=== PATIENT | female | born 1975 | race Caucasian/White ===

== ENCOUNTER 2018-09-10 18:17 | Emergency (ER) | payer MEDICAID ==
[~2018-09-10] VITALS: Ht 170.2 cm; Wt 71.7 kg
--- NOTE | 2018-09-10 18:40 | NUR ---
Patient discharged to home in stable conditon. Written and verbal after care instructions given to patient. Patient verbalizes understanding of instructions.
== END 2018-09-10 18:40 | disposition home or self-care (01) ==
LOC: ER 18:19
DX: A74.9 Chlamydial infection, unspecified (principal); B95.8 Unspecified staphylococcus as the cause of diseases classified elsewhere; Z88.1 Allergy status to other antibiotic agents
CPT/HCPCS: A4663

== ENCOUNTER 2023-02-03 05:39 | Emergency (ER) | payer MEDICAID, OTHER ==
[~2023-02-03] VITALS: Ht 170.2 cm; Wt 68.0 kg
--- NOTE | 2023-02-03 07:21 | NUR ---
at bedside for evaluation.
[2023-02-03 07:56] LABS: HEMATOCRIT 21.1 % (31.2-41.9); MEAN CORPUSCULAR HEMOGLOBIN 18.8 uug (24.7-32.8); MEAN CORPUSCULAR VOLUME 63.6 fL (75.5-95.3); PLATELET COUNT (AUTO) 199 K/uL (179-408)
[2023-02-03 08:26] LABS: CREATININE 0.9 mg/dL (0.6-1.3); POTASSIUM 3.9 mmol/L (3.5-5.1)
[2023-02-03 08:27] LABS: BILIRUBIN,TOTAL 0.4 mg/dL (0.2-1.0)
[2023-02-03 08:28] LABS: TOTAL PROTEIN, SERUM 7.2 g/dL (6.4-8.2)
--- NOTE | 2023-02-03 09:37 | NUR ---
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
[2023-02-03 09:42] LABS: IRON, SERUM 17 ug/dL (50-175)
[2023-02-03] MEDS ORDERED: MEDR10TA3 PO (11:47)
[2023-02-03] MEDS ORDERED: HYDR12.55 PO (11:47)
--- NOTE | 2023-02-03 13:10 | NUR ---
Per [place] from lab, the second unit would be ready a minimum of three hours from now. MD aware. MD to discuss with patient.
--- NOTE | 2023-02-03 13:20 | NUR ---
Patient does not wish to wait for the second unit to be ready. , Sam, aware.
--- NOTE | 2023-02-03 13:30 | NUR ---
One unit of packed RBCs infused. Patient tolerated infusion without adverse effects.
--- NOTE | 2023-02-03 13:51 | NUR ---
Patient discharged to home in stable condition. Patient ambulate with brisk, steady gait. No complaints at this time. Written and verbal after care instructions given. Patient verbalizes understanding of instructions. Stressed follow up with primary care physician and OBGYN. Patient advised to return to ER for worsening s/s.
[2023-02-03 13:56] LABS: EOSINOPHILS % (MANUAL) 6 % (0-8); LYMPHOCYTES % (MANUAL) 11 % (20-40); MONOCYTES % (MANUAL) 9 % (2-10); NEUTROPHILS % (MANUAL) 74 % (42-75)
[2023-02-03 13:59] VITALS: BP 111/63
== END 2023-02-03 13:51 | disposition home or self-care (01) ==
LOC: ER 05:44
DX: D64.9 Anemia, unspecified (principal); N93.9 Abnormal uterine and vaginal bleeding, unspecified; R53.1 Weakness; I10 Essential (primary) hypertension; Z20.822 Contact with and (suspected) exposure to COVID-19; Z88.1 Allergy status to other antibiotic agents
CPT/HCPCS: 80053; 83880; 83550; 85007; 85025; 85379; 85610; 86850; 86900; 86901; 86920 ×2; 87426; 84484; 84702; 36415; 93005; 71045; 76856; 93970; 99291; 80307; P9016; J7040; 70030-TC

== ENCOUNTER 2023-02-25 23:26 | Emergency (ER) | payer OTHER ==
[~2023-02-25] VITALS: Ht 167.6 cm; Wt 72.6 kg
[~2023-02-25 23:26] MED LIST: HYDR12.55 PO; MEDR10TA3 PO
[2023-02-25 23:58] LABS: HEMATOCRIT 25.2 % (31.2-41.9); MEAN CORPUSCULAR HEMOGLOBIN 19.7 uug (24.7-32.8); MEAN CORPUSCULAR VOLUME 66.6 fL (75.5-95.3); PLATELET COUNT (AUTO) 196 K/uL (179-408)
--- NOTE | 2023-02-26 00:02 | NUR ---
BIB friends from home with c/o low blood count, patient is alert and oriented x4, no c/o pain at this time. No s/s of any distress noted, pale in color, slight BLE edema noted abd soft non trnder to palpation. #20g established in left forearm, blood collected and sent to lab. Patient has been informed of plan of care assisted into gown and bedside EKG in progress for MD review.
[2023-02-26 00:16] LABS: BILIRUBIN,DIRECT 0.3 mg/dL (0.0-0.2); BILIRUBIN,TOTAL 0.6 mg/dL (0.2-1.0); TOTAL PROTEIN, SERUM 8.1 g/dL (6.4-8.2)
--- NOTE | 2023-02-26 00:32 | NUR ---
Lab has returned, was at [facility] talking with patient, okay for discharge home with friends.ACI given states understanding.
[2023-02-26 00:34] VITALS: BP 135/86
== END 2023-02-26 00:35 | disposition home or self-care (01) ==
LOC: ER 23:26
DX: D50.9 Iron deficiency anemia, unspecified (principal); N93.8 Other specified abnormal uterine and vaginal bleeding; R10.2 Pelvic and perineal pain; Z88.1 Allergy status to other antibiotic agents; Z79.899 Other long term (current) drug therapy
CPT/HCPCS: 36415; 85025; 85730; 86850; 86900; 86901; 93005; A4663

== ENCOUNTER 2023-03-05 18:25 | Emergency (ER) | payer OTHER ==
[~2023-03-05] VITALS: Ht 167.6 cm; Wt 72.6 kg
--- NOTE | 2023-03-05 19:06 | NUR ---
Pt seen by . Safety measures in place. Will continue to monitor.
[2023-03-05 19:24] LABS: HEMATOCRIT 23.4 % (31.2-41.9); MEAN CORPUSCULAR HEMOGLOBIN 20.2 uug (24.7-32.8); MEAN CORPUSCULAR VOLUME 66.3 fL (75.5-95.3); PLATELET COUNT (AUTO) 193 K/uL (179-408)
[2023-03-05 19:30] LABS: POTASSIUM 4.1 mmol/L (3.5-5.1)
--- NOTE | 2023-03-05 19:55 | NUR ---
Patient discharged to home in stable condition. Written and verbal after care instructions given. Patient verbalizes understanding of instructions. Provided Patient copy of labs and EKG. Stressed follow up or return to ER for worsening s/s.
[2023-03-05 19:56] VITALS: BP 149/88
[2023-03-06 07:30] LABS: EOSINOPHILS % (MANUAL) 7 % (0-8); LYMPHOCYTES % (MANUAL) 19 % (20-40); MONOCYTES % (MANUAL) 6 % (2-10); NEUTROPHILS % (MANUAL) 68 % (42-75)
== END 2023-03-05 19:56 | disposition home or self-care (01) ==
LOC: ER 18:25
DX: N93.8 Other specified abnormal uterine and vaginal bleeding (principal); R42 Dizziness and giddiness; D50.9 Iron deficiency anemia, unspecified; Z88.1 Allergy status to other antibiotic agents; Z79.899 Other long term (current) drug therapy
CPT/HCPCS: 36415; 70030-TC; 85025; 85610; 93005; A4663

== ENCOUNTER 2023-06-28 05:05 | Emergency (ER) | payer OTHER ==
[~2023-06-28] VITALS: Ht 167.6 cm; Wt 72.6 kg
[2023-06-28 05:11] VITALS: O2SAT 100
[2023-06-28] MEDS ORDERED: ONDANSETRON ODT 4 MG TAB.RAPDIS ONE (05:40)
[2023-06-28] MEDS ORDERED: HYDROCODONE/APAP 5-325MG TABLET ONE (05:40)
[2023-06-28] MEDS ORDERED: HYDROCODONE/APAP 10-325 MG TABLET PO ONE (05:45)
[2023-06-28] MEDS ORDERED: ONDANSETRON ODT 4 MG TAB.RAPDIS SL ONE (05:45)
[2023-06-28] MEDS ORDERED: ONDA4TAB5 PO (06:08)
[2023-06-28] MEDS ORDERED: HYDR-3980 PO (06:08)
[2023-06-28] MEDS ORDERED: CYCL10TA9 PO (06:08)
== END 2023-06-28 06:23 | disposition home or self-care (01) ==
LOC: ER 05:08
DX: M54.50 Low back pain, unspecified (principal); Z88.1 Allergy status to other antibiotic agents; Z79.899 Other long term (current) drug therapy
CPT/HCPCS: 72100; A4663; Q0162

== ENCOUNTER 2024-06-06 07:25 | Inpatient (IN) | payer MEDICAID, OTHER ==
[~2024-06-06] VITALS: Ht 167.6 cm; Wt 74.8 kg
[~2024-06-06 07:25] MED LIST changes: +CYCL10TA9 PO; +HYDR-3980 PO; +ONDA4TAB5 PO
[2024-06-06 08:30] LABS: CALCIUM 8.5 mg/dL (8.5-10.1); CARBON DIOXIDE 21 mmol/L (21-32); CHLORIDE 104 mmol/L (98-107); GLUCOSE 88 mg/dL (74-106); POTASSIUM 3.4 mmol/L (3.5-5.1); SODIUM SERUM 136 mmol/L (136-145); UREA NITROGEN, BLOOD 16 mg/dL (7-18)
[2024-06-06 08:37] LABS: BASOPHILS % (AUTO) 0.6 % (0.0-2.0); DIFFERENTIAL COMMENT 1; EOSINOPHILS # (AUTO) 0.2 K/uL (0.0-0.7); EOSINOPHILS % (AUTO) 5.2 % (0.0-7.0); HEMATOCRIT 25.6 % (31.2-41.9); HEMOGLOBIN 7.6 g/dL (10.9-14.3); LYMPHOCYTES # (AUTO) 0.7 K/uL (0.8-4.8); LYMPHOCYTES % (AUTO) 19.3 % (20.5-51.5); MEAN CORPUSCULAR HEMOGLOBIN 20.1 uug (24.7-32.8); MEAN CORPUSCULAR HGB CONC 30 g/dL (32.3-35.6); MEAN CORPUSCULAR VOLUME 67.2 fL (75.5-95.3); MONOCYTES # (AUTO) 0.3 K/uL (0.1-1.30); MONOCYTES % (AUTO) 7.1 % (0.0-11.0); NEUTROPHILS # (AUTO) 2.6 K/uL (1.8-8.9); NEUTROPHILS % (AUTO) 67.8 % (38.5-71.5); PLATELET COUNT (AUTO) 149 K/uL (179-408); RED BLOOD CELL COUNT(AUTO) 3.81 MIL/uL (3.63-4.92); RED CELL DISTRIBUTION WIDTH 19.8 % (12.3-17.7); WHITE BLOOD COUNT (AUTO) 3.8 K/uL (3.8-11.8)
[2024-06-06 08:39] LABS: ALANINE AMINOTRANSFERASE 40 U/L (14-59); ALBUMIN 2.8 g/dL (3.4-5.0); ALKALINE PHOSPHATASE 84 U/L (50-136); ASPARTATE AMINOTRANSFERASE 53 U/L (15-37); BILIRUBIN,DIRECT 0.2 mg/dL (0.0-0.2); BILIRUBIN,TOTAL 0.4 mg/dL (0.2-1.0); TOTAL PROTEIN, SERUM 7.4 g/dL (6.4-8.2)
[2024-06-06 08:40] LABS: NEUTROPHILS % (MANUAL) 0 % (42-75)
[2024-06-06 08:41] LABS: LYMPHOCYTES % (MANUAL) 0 % (20-40)
[2024-06-06 09:00] LABS: MAGNESIUM 1.8 mg/dL (1.8-2.4)
[2024-06-06 09:15] LABS: C-REACTIVE PROTEIN 1.91 mg/dL (0.00-0.30)
[2024-06-06] MEDS ORDERED: POTASSIUM BICARBONATE/CIT AC 25 MEQ TABLET.EFF ONE (09:20)
[2024-06-06] MEDS: POTASSIUM BICARBONATE/CIT AC 25 MEQ TABLET.EFF PO ONE (09:26)
[2024-06-06 09:50] LABS: *BILIRUBIN,URIN NEGATIVE (NEGATIVE); *BLOOD, URINE NEGATIVE (NEGATIVE); *CLARITY,URINE CLEAR (CLEAR); *COLOR,URINE YELLOW (YELLOW); *KETONES,URINE NEGATIVE (NEGATIVE); *PROTEIN,URINE NEGATIVE (NEGATIVE); *UROBILINOGEN,URINE 0.2 E.U./dl (NORMAL); LEUKOCYTE ESTERASE ,URINE TRACE (NEGATIVE); NITRITE, URINE NEGATIVE (NEGATIVE); PH,URINE 5.5 (5.0-8.0); UGLUCOSE NEGATIVE (NEGATIVE)
[2024-06-06 10:13] LABS: BACTERIA,URINE MODERATE /HPF (NONE SEEN); RBC,URINE 0-3 /HPF (0-3); SQUAMOUS EPITHELIAL CELL,UR MODERATE /HPF (NONE SEEN)
[2024-06-06] MEDS ORDERED: IBUPROFEN 600 MG TABLET ONE (10:23)
[2024-06-06] MEDS: IBUPROFEN 600 MG TABLET PO ONE (10:25)
[2024-06-06] MEDS ORDERED: CEFAZOLIN 1 G VIAL ONE (12:49)
[2024-06-06] MEDS: CEFAZOLIN 1 G in IV DEXTROSE 5% 50 ML IV ONE (12:56)
[2024-06-06 14:09] LABS: *URINE HCG, QUAL NEGATIVE (NEGATIVE)
[2024-06-06] MEDS ORDERED: HYDROCODONE/APAP 5-325MG TABLET ONE (15:04)
[2024-06-06] MEDS: HYDROCODONE/APAP 5-325MG TABLET PO ONE (15:12)
[2024-06-06] MEDS ORDERED: ONDANSETRON 4 MG/2 ML VIAL IV PRN (15:15)
[2024-06-06] MEDS: CYANOCOBALAMIN 1000 MCG/ML VIAL IM ONE (16:14)
[2024-06-06] MEDS: ENOXAPARIN SODIUM 40 MG/0.4 ML DISP.SYRIN SQ SCH (16:39)
[2024-06-06 17:30] VITALS: BP 148/86; TEMP 100; O2SAT 96
[2024-06-06] MEDS: ACETAMINOPHEN 325 MG TABLET PO PRN (18:33)
[2024-06-06] MEDS: CEFEPIME HCL 1 G in IV DEXTROSE 5% 50 ML IV SCH (21:27)
[2024-06-07 06:00] VITALS: BP_SYST 154; BP_SYST 160; BP_DIAS 81; BP_DIAS 83; TEMP 98.9; O2SAT 95
[2024-06-07] MEDS: PANTOPRAZOLE SODIUM 40 MG TABLET.DR PO SCH (06:09)
[2024-06-07 07:12] LABS: BASOPHILS # (AUTO) 0.1 K/UL (0.0-0.2); BASOPHILS % (AUTO) 1.4 % (0.0-2.0); EOSINOPHILS # (AUTO) 0.3 K/uL (0.0-0.7); EOSINOPHILS % (AUTO) 6.4 % (0.0-7.0); HEMATOCRIT 24.6 % (31.2-41.9); HEMOGLOBIN 7.6 g/dL (10.9-14.3); LYMPHOCYTES # (AUTO) 1.1 K/uL (0.8-4.8); LYMPHOCYTES % (AUTO) 24.5 % (20.5-51.5); MEAN CORPUSCULAR HEMOGLOBIN 20.5 uug (24.7-32.8); MEAN CORPUSCULAR HGB CONC 31 g/dL (32.3-35.6); MONOCYTES # (AUTO) 0.4 K/uL (0.1-1.30); MONOCYTES % (AUTO) 7.7 % (0.0-11.0); NEUTROPHILS # (AUTO) 2.8 K/uL (1.8-8.9); PLATELET COUNT (AUTO) 120 K/uL (179-408); RED BLOOD CELL COUNT(AUTO) 3.72 MIL/uL (3.63-4.92); WHITE BLOOD COUNT (AUTO) 4.6 K/uL (3.8-11.8)
[2024-06-07 07:19] LABS: DIFFERENTIAL COMMENT 1
[2024-06-07 07:24] LABS: CALCIUM 8.3 mg/dL (8.5-10.1); CREATININE 0.7 mg/dL (0.6-1.3); MAGNESIUM 1.9 mg/dL (1.8-2.4); PHOSPHOROUS 2.6 mg/dL (2.5-4.9)
[2024-06-07 07:48] LABS: POTASSIUM 4.2 mmol/L (3.5-5.1)
[2024-06-07 07:55] VITALS: BP 156/91; TEMP 98.3; O2SAT 96
[2024-06-07] MEDS ORDERED: FERR325T24 PO (10:29)
[2024-06-07] MEDS ORDERED: HYDR25TA4 PO (10:29)
[2024-06-07 13:37] LABS: BAND % (MANUAL) 4 % (0-10); EOSINOPHILS % (MANUAL) 5 % (0-8); LYMPHOCYTES % (MANUAL) 21 % (20-40); MONOCYTES % (MANUAL) 7 % (2-10); NEUTROPHILS % (MANUAL) 59 % (42-75)
[2024-06-07 13:38] LABS: ANISOCYTOSIS 2+; HYPOCHROMASIA 2+; PLATELET ESTIMATE DECREASED
[2024-06-07] MEDS: SOD FERRIC GLUC COMPLX/SUCROSE 125 MG in IV NORMAL SALINE 100 ML IV SCH (15:06)
[2024-06-07 15:52] VITALS: BP 143/82; TEMP 97.9; O2SAT 98
[2024-06-07] MEDS: HYDROCHLOROTHIAZIDE 25 MG TABLET PO SCH (18:25)
[2024-06-07 20:00] VITALS: BP 142/83; TEMP 98.8; O2SAT 98
[2024-06-08 06:34] VITALS: BP 152/86; TEMP 98.4; O2SAT 98
[2024-06-08] MEDS: LOPERAMIDE HCL 2 MG CAPSULE PO PRN (06:36)
[2024-06-08] MEDS: FERROUS SULFATE 325 MG TABEC PO SCH (08:57)
[2024-06-08] MEDS ORDERED: SULF1TAB48 PO (09:21)
[2024-06-08 11:02] VITALS: BP 141/78; TEMP 98.3; O2SAT 96
[2024-06-09] MEDS ORDERED: CEPH500C2 PO (11:10)
== END 2024-06-08 11:45 | disposition home or self-care (01) | DRG 383 ==
LOC: ER 07:25 → MEDSURG3 15:45
PROVIDERS: ADMIT Nurse Practitioner Acute Care; ATTEND Nurse Practitioner Acute Care
DX: L03.116 Cellulitis of left lower limb (principal); E44.0 Moderate protein-calorie malnutrition; E88.09 Other disorders of plasma-protein metabolism, not elsewhere classified; D50.9 Iron deficiency anemia, unspecified; F17.210 Nicotine dependence, cigarettes, uncomplicated; D72.810 Lymphocytopenia; E87.6 Hypokalemia; I10 Essential (primary) hypertension; Z82.49 Family history of ischemic heart disease and other diseases of the circulatory system; Z88.1 Allergy status to other antibiotic agents; R60.0 Localized edema; R00.0 Tachycardia, unspecified
CPT/HCPCS: 36415; 70030-TC; 71045; 83550; 83735; 84100; 84484; 84703; 85025; 85651; 85730; 86140; 87040; 93005; 93307; G0378; J0690; J0692; J1650; J2916; J3420

== ENCOUNTER 2024-07-11 02:17 | Inpatient (IN) | payer OTHER ==
[~2024-07-11] VITALS: Ht 167.8 cm; Wt 68.0 kg
[~2024-07-11 02:17] MED LIST changes: +CEPH500C2 PO; -CYCL10TA9 PO; +FERR325T24 PO; -HYDR-3980 PO; -HYDR12.55 PO; +HYDR25TA4 PO; -MEDR10TA3 PO; -ONDA4TAB5 PO; +SULF1TAB48 PO
[2024-07-11] MEDS ORDERED: ONDANSETRON ODT 4 MG TAB.RAPDIS ONE (06:29)
[2024-07-11] MEDS: ONDANSETRON ODT 4 MG TAB.RAPDIS SL ONE (06:30)
[2024-07-11] MEDS ORDERED: MAG HYDROX/AL HYDROX/SIMETH 30 ML LIQUID UDC ONE (06:32)
[2024-07-11] MEDS: MAG HYDROX/AL HYDROX/SIMETH 30 ML LIQUID UDC PO ONE (06:37)
[2024-07-11 07:07] LABS: *BLOOD, URINE 3+ (NEGATIVE); *CLARITY,URINE CLEAR (CLEAR); *COLOR,URINE YELLOW (YELLOW); *KETONES,URINE 2+ (NEGATIVE); *PROTEIN,URINE 2+ (NEGATIVE); LEUKOCYTE ESTERASE ,URINE NEGATIVE (NEGATIVE); NITRITE, URINE NEGATIVE (NEGATIVE); UGLUCOSE NEGATIVE (NEGATIVE)
[2024-07-11 07:09] LABS: *BILIRUBIN,URIN 2+ (NEGATIVE)
[2024-07-11 07:14] LABS: BASOPHILS % (AUTO) 0.4 % (0.0-2.0); EOSINOPHILS % (AUTO) 0.1 % (0.0-7.0); HEMATOCRIT 36.8 % (31.2-41.9); HEMOGLOBIN 11.7 g/dL (10.9-14.3); LYMPHOCYTES # (AUTO) 1.2 K/uL (0.8-4.8); LYMPHOCYTES % (AUTO) 10.5 % (20.5-51.5); MEAN CORPUSCULAR HGB CONC 32 g/dL (32.3-35.6); MEAN CORPUSCULAR VOLUME 66.2 fL (75.5-95.3); MONOCYTES # (AUTO) 0.6 K/uL (0.1-1.30); MONOCYTES % (AUTO) 5.3 % (0.0-11.0); NEUTROPHILS # (AUTO) 9.2 K/uL (1.8-8.9); NEUTROPHILS % (AUTO) 83.7 % (38.5-71.5); PLATELET COUNT (AUTO) 293 K/uL (179-408); RED BLOOD CELL COUNT(AUTO) 5.55 MIL/uL (3.63-4.92)
[2024-07-11 07:15] LABS: *URINE HCG, QUAL NEGATIVE (NEGATIVE)
[2024-07-11 07:20] LABS: ALBUMIN 3.7 g/dL (3.4-5.0); BILIRUBIN,DIRECT 0.3 mg/dL (0.0-0.2); BILIRUBIN,TOTAL 0.8 mg/dL (0.2-1.0); CALCIUM 9.7 mg/dL (8.5-10.1); POTASSIUM 3.2 mmol/L (3.5-5.1); TOTAL PROTEIN, SERUM 8.9 g/dL (6.4-8.2)
[2024-07-11] MEDS: IV NORMAL SALINE 1000 ML BAG IV ONE (07:30)
[2024-07-11] MEDS ORDERED: METOCLOPRAMIDE HCL 10 MG/2 ML VIAL ONE (07:35)
[2024-07-11] MEDS ORDERED: diphenhydrAMINE 50 MG/1 ML VIAL ONE (07:35)
[2024-07-11] MEDS: diphenhydrAMINE 50 MG/1 ML VIAL IV ONE (07:40)
[2024-07-11] MEDS: METOCLOPRAMIDE HCL 10 MG/2 ML VIAL IV ONE (07:45)
[2024-07-11 09:46] LABS: RBC,URINE 20-50 /HPF (0-3)
[2024-07-11 09:47] LABS: BACTERIA,URINE MODERATE /HPF (NONE SEEN); URINE AMORPHOUS URATE MANY /HPF
[2024-07-11] MEDS ORDERED: METOCLOPRAMIDE HCL 10 MG/2 ML VIAL IV ONE (10:15)
[2024-07-11] MEDS ORDERED: KETOROLAC TROMETHAMINE 15 MG INJ ONE (10:15)
[2024-07-11] MEDS: KETOROLAC TROMETHAMINE 15 MG INJ IVP ONE (10:18)
[2024-07-11] MEDS ORDERED: SUCRALFATE 1 G/10 ML LIQUID UDC ONE (11:27)
[2024-07-11] MEDS: SUCRALFATE 1 G TABLET PO SCH (11:28)
[2024-07-11] MEDS ORDERED: POTASSIUM CHLORIDE 50 ML IV SCH (12:15)
[2024-07-11] MEDS ORDERED: ACETAMINOPHEN 325 MG TABLET PO PRN (12:15)
[2024-07-11] MEDS ORDERED: DIATR MEGLU/DIATRIZOATE SODIUM 30 ML BOTTLE ONE (13:48)
[2024-07-11] MEDS ORDERED: SWABABLE VALVE TRANSFER SET EA MC ONE (15:57)
[2024-07-11] MEDS ORDERED: IOHEXOL 300MG/ML 100 ML INFUS..BTL ONE (15:57)
[2024-07-11] MEDS ORDERED: IV NORMAL SALINE 250 ML IV ONE (15:58)
[2024-07-11 20:00] VITALS: BP 127/72; TEMP 97.5; O2SAT 100
[2024-07-11] MEDS: POTASSIUM CHLORIDE 50 ML IV SCH (20:19)
[2024-07-11] MEDS: IV NS 1000 ML 1,000 ML IV PRN (20:26)
[2024-07-11] MEDS: MORPHINE SULFATE 2 MG/1 ML DISP.SYRIN IV SCH (20:34)
[2024-07-12] MEDS: MORPHINE SULFATE 2 MG/1 ML DISP.SYRIN IV PRN (00:55)
[2024-07-12] MEDS: ONDANSETRON 4 MG/2 ML VIAL IV PRN (03:26)
[2024-07-12] MEDS: PANTOPRAZOLE SODIUM 40 MG VIAL IV SCH (05:47)
[2024-07-12 06:00] VITALS: BP 143/84; TEMP 98.2; O2SAT 97
[2024-07-12] MEDS: METOCLOPRAMIDE HCL 10 MG/2 ML VIAL IV SCH (06:05)
[2024-07-12 07:52] LABS: BASOPHILS # (AUTO) 0.1 K/UL (0.0-0.2); BASOPHILS % (AUTO) 0.8 % (0.0-2.0); EOSINOPHILS # (AUTO) 0.1 K/uL (0.0-0.7); EOSINOPHILS % (AUTO) 0.7 % (0.0-7.0); HEMATOCRIT 33.2 % (31.2-41.9); HEMOGLOBIN 10.3 g/dL (10.9-14.3); LYMPHOCYTES # (AUTO) 1.2 K/uL (0.8-4.8); LYMPHOCYTES % (AUTO) 15.5 % (20.5-51.5); MEAN CORPUSCULAR HEMOGLOBIN 20.7 uug (24.7-32.8); MEAN CORPUSCULAR HGB CONC 31 g/dL (32.3-35.6); MEAN CORPUSCULAR VOLUME 66.8 fL (75.5-95.3); MONOCYTES # (AUTO) 0.6 K/uL (0.1-1.30); MONOCYTES % (AUTO) 7.5 % (0.0-11.0); NEUTROPHILS # (AUTO) 6.1 K/uL (1.8-8.9); NEUTROPHILS % (AUTO) 75.5 % (38.5-71.5); PLATELET COUNT (AUTO) 218 K/uL (179-408); RED BLOOD CELL COUNT(AUTO) 4.98 MIL/uL (3.63-4.92); RED CELL DISTRIBUTION WIDTH 19.5 % (12.3-17.7); WHITE BLOOD COUNT (AUTO) 8.1 K/uL (3.8-11.8)
[2024-07-12 08:01] LABS: CALCIUM 8.4 mg/dL (8.5-10.1); CREATININE 0.7 mg/dL (0.6-1.3); MAGNESIUM 1.9 mg/dL (1.8-2.4)
[2024-07-12 08:02] LABS: DIFFERENTIAL COMMENT 1
[2024-07-12] MEDS ORDERED: PANTOPRAZOLE SODIUM 40 MG VIAL IV SCH (09:00)
[2024-07-12] MEDS: POTASSIUM CHLORIDE 50 ML IV SCH (11:21)
[2024-07-12 12:00] VITALS: BP 149/73; TEMP 98.6; O2SAT 99
[2024-07-12 16:31] VITALS: BP 135/78; TEMP 98.1; O2SAT 99
[2024-07-12] MEDS: SUCRALFATE 1 G TABLET PO SCH (18:08)
[2024-07-12 20:00] VITALS: BP 106/69; TEMP 97.8; O2SAT 96
[2024-07-13 04:00] VITALS: BP 135/74; TEMP 97.5; O2SAT 97
[2024-07-13 11:09] VITALS: BP 111/64; TEMP 98.3; O2SAT 100
[2024-07-13] MEDS ORDERED: PANT40TA2 PO (12:47)
[2024-07-13] MEDS ORDERED: SUCR1TAB31 PO (12:47)
[2024-07-13 16:00] VITALS: BP 117/70; TEMP 98.6; O2SAT 100
[2024-07-13 20:00] VITALS: BP 111/62; TEMP 98.1; O2SAT 97
[2024-07-14 06:00] VITALS: BP 132/68; TEMP 98.2; O2SAT 97
[2024-07-14] MEDS: PANTOPRAZOLE SODIUM 40 MG TABLET.DR PO SCH (07:37)
[2024-07-14] MEDS ORDERED: METOCLOPRAMIDE HCL 10 MG TABLET PO SCH (14:00)
== END 2024-07-14 12:42 | disposition home or self-care (01) | DRG 241 ==
LOC: ER 02:22 → MEDSURG3 16:27
PROVIDERS: ADMIT Nurse Practitioner Acute Care; ATTEND Nurse Practitioner Acute Care
PROC: 05HB33Z Insertion of Infusion Device into Right Basilic Vein, Percutaneous Approach (ICD-10-PCS; principal; 2024-07-11)
DX: K29.80 Duodenitis without bleeding (principal); D49.0 Neoplasm of unspecified behavior of digestive system; E87.6 Hypokalemia; I10 Essential (primary) hypertension; D50.9 Iron deficiency anemia, unspecified; N93.8 Other specified abnormal uterine and vaginal bleeding; Z79.899 Other long term (current) drug therapy; K31.89 Other diseases of stomach and duodenum
CPT/HCPCS: 36415; 70030-TC; 83605; 83690; 83735; 84100; 84703; 85025; 87040; A4663; G0378; J1200; J1885; J2270; J2405; J2470; J2765; J3480; J7040; Q0162; Q9963; Q9967